=== PATIENT | male | born 1990 | race Caucasian/White ===

== ENCOUNTER 2016-06-13 11:45 | Emergency (ER) | payer OTHER ==
[2016-06-13 12:32] LABS: BASOPHIL 0.4 % (0-2); HCT 46.9 % (42.0-52.0); LYMPHOCYTE 28.6 % (15-48); MCH 31.3 pg (25.0-31.0); MCHC 34.1 g/dL (32.0-36.0); MCV 91.6 fL (78.0-100.0); MONOCYTE 7.8 % (0-12); MPV 11.5 fL (6.0-9.5); NEUTROPHIL 61.2 % (41-80); PLT 156 K/uL (150-400); RBC 5.12 M/uL (4.70-6.00); RDW 12.7 % (11.5-14.0); WBC 7.5 K/uL (4.0-10.5)
[2016-06-13 12:33] LABS: BILIRUBIN 1+ mg/dL (NEGATIVE); BLOOD NEGATIVE Ery/uL (NEGATIVE); CLARITY CLEAR (CLEAR); COLOR STRAW (YELLOW); GLUCOSE (U) NORMAL (NORMAL); KETONE (U) TRACE mg/dL (NEGATIVE); LEUKOCYTES NEGATIVE Leu/uL (NEGATIVE); NITRITE NEGATIVE (NEGATIVE); PROTEIN TRACE (LOW) mg/dL (NEGATIVE); SPECIFIC GRAVITY 1.015 (1.001-1.030)
[2016-06-13 12:40] LABS: BACTERIA TRACE; MUCOUS LARGE; SQUAMOUS EPITHELIAL CELLS RARE
[2016-06-13 12:47] LABS: AMPHETAMINES NEGATIVE (NEGATIVE); BARBITURATES NEGATIVE (NEGATIVE); BENZODIAZEPINES NEGATIVE (NEGATIVE); COCAINE NEGATIVE (NEGATIVE); MARIJUANA (THC) POSITIVE (NEGATIVE); METHADONE NEGATIVE (NEGATIVE); TRICYCLIC ANTIDEPRESSANT NEGATIVE (NEGATIVE)
[2016-06-13 12:58] LABS: BILIRUBIN - TOTAL 0.6 mg/dL (0.1-1.0); CREATININE 0.8 mg/dL (0.7-1.2); GLOBULIN (CALCULATION) 2.6 g/dL (2.2-4.2); POTASSIUM 4.2 mmol/L (3.5-5.1); TOTAL PROTEIN 7.6 g/dL (6.4-8.3)
== END 2016-06-13 14:29 | disposition home or self-care (01) ==
LOC: FER 11:45
PROVIDERS: Internal Medicine
DX: N20.0 Calculus of kidney (principal); F32.9 Major depressive disorder, single episode, unspecified; N50.819 Testicular pain, unspecified; F17.210 Nicotine dependence, cigarettes, uncomplicated; Z87.442 Personal history of urinary calculi; Z79.899 Other long term (current) drug therapy
CPT/HCPCS: 36415; 80053; 80305; 81001; 85025; J2270; J2405

== ENCOUNTER 2021-11-16 23:11 | Emergency (ER) | payer OTHER ==
[2021-11-17 00:29] LABS: BASOPHIL 0.9 % (0-2); EOSINOPHIL 2.7 % (0-5); HCT 41.2 % (42.0-52.0); LYMPHOCYTE 40.8 % (15-48); MCH 29.7 pg (25.0-31.0); MCV 87.5 fL (78.0-100.0); MONOCYTE 9.1 % (0-12); MPV 10.9 fL (6.0-9.5); NEUTROPHIL 46.3 % (41-80); NRBC 0; PLT 212 K/uL (150-400); RBC 4.71 M/uL (4.70-6.00); RDW 11.8 % (11.5-14.0); WBC 6.6 K/uL (4.0-10.5)
[2021-11-17 01:03] LABS: ALBUMIN 3.8 g/dL (3.4-5.0); BILIRUBIN - TOTAL 0.3 mg/dL (0.2-1.0); BUN/CREAT RATIO (CALC) 18.9 RATIO; CREATININE 0.95 mg/dL (0.67-1.17); GLOBULIN (CALCULATION) 2.3 g/dL; POTASSIUM 3.5 mmol/L (3.5-5.1); TOTAL PROTEIN 6.1 g/dL (6.4-8.2)
[2021-11-17 02:55] LABS: CORONAVIRUS 2019 SARS-COV-2 NEGATIVE (NEGATIVE); INFLUENZA A NAA NEGATIVE (NEGATIVE)
== END 2021-11-17 02:58 | disposition home or self-care (01) ==
LOC: FER 23:11
PROVIDERS: Internal Medicine
DX: R07.89 Other chest pain (principal); F17.290 Nicotine dependence, other tobacco product, uncomplicated; Z20.822 Contact with and (suspected) exposure to COVID-19
CPT/HCPCS: 36415; 71045; 80053; 84484; 85025; 93005; J2060; U0002

== ENCOUNTER 2021-12-18 08:32 | Emergency (ER) | payer OTHER ==
[2021-12-18 09:47] LABS: BASOPHIL 0.6 % (0-2); EOSINOPHIL 1.4 % (0-5); HCT 45.6 % (42.0-52.0); HGB 15.6 g/dl (13.2-18.0); LYMPHOCYTE 26.1 % (15-48); MCH 30.2 pg (25.0-31.0); MCHC 34.2 g/dL (32.0-36.0); MCV 88.2 fL (78.0-100.0); MONOCYTE 10.9 % (0-12); MPV 10.5 fL (6.0-9.5); NEUTROPHIL 60.6 % (41-80); NRBC 0; PLT 225 K/uL (150-400); RBC 5.17 M/uL (4.70-6.00); RDW 12.2 % (11.5-14.0); WBC 7.9 K/uL (4.0-10.5)
[2021-12-18 09:48] LABS: BILIRUBIN NEGATIVE (NEGATIVE); BLOOD 3+ Ery/uL (NEGATIVE); CLARITY HAZY (CLEAR); COLOR YELLOW (YELLOW); GLUCOSE (U) NORMAL (NORMAL); LEUKOCYTES NEGATIVE Leu/uL (NEGATIVE); NITRITE NEGATIVE (NEGATIVE); PROTEIN TRACE (LOW) mg/dL (NEGATIVE); SPECIFIC GRAVITY >=1.030 (1.001-1.030); UROBILINOGEN 0.2 mg/dL (0.2-1.0)
[2021-12-18 10:15] LABS: BACTERIA TRACE; URINARY RBC 20-50
[2021-12-18] MEDS ORDERED: PERCOCET 5-3251 EACH PO (11:07)
[2021-12-18] MEDS ORDERED: FLOMAX0.4 MG PO (11:07)
[2021-12-18] MEDS ORDERED: ONDANSETRON ODT4 MG PO (11:07)
[2021-12-18] MEDS ORDERED: IBUPROFEN800 MG PO (11:07)
[2021-12-18 11:31] LABS: ALBUMIN 4.2 g/dL (3.4-5.0); BILIRUBIN - TOTAL 0.4 mg/dL (0.2-1.0); BUN/CREAT RATIO (CALC) 24.4 RATIO; CREATININE 0.82 mg/dL (0.67-1.17); GLOBULIN (CALCULATION) 2.7 g/dL; POTASSIUM 4.7 mmol/L (3.5-5.1); TOTAL PROTEIN 6.9 g/dL (6.4-8.2)
== END 2021-12-18 11:30 | disposition home or self-care (01) ==
LOC: FER 08:32
PROVIDERS: Internal Medicine
DX: N13.2 Hydronephrosis with renal and ureteral calculous obstruction (principal); F17.290 Nicotine dependence, other tobacco product, uncomplicated
CPT/HCPCS: 36415; 80053; 81001; 83690; 84145; 85025; J1170; J1885; J2405; J7030